=== PATIENT | male | born 1980 | race Hispanic/Latino ===

== ENCOUNTER 2021-12-08 09:02 | Emergency (ER) | payer SELFPAY ==
[2021-12-08] MEDS ORDERED: Ketorolac Tromethamine 30 MG/ML VIAL ONE (09:54)
== END 2021-12-08 10:04 | disposition home or self-care (01) ==
LOC: CSHERS 09:02
DX: S70.02XA Contusion of left hip, initial encounter (principal); Z87.891 Personal history of nicotine dependence; W19.XXXA Unspecified fall, initial encounter
CPT/HCPCS: 96372; J1885

== ENCOUNTER 2022-05-26 14:12 | Emergency (ER) | payer BC | END 2022-05-26 16:00 | disposition home or self-care (01) | LOC: CSHERS 14:12 | DX: M72.2 Plantar fascial fibromatosis (principal); Z87.891 Personal history of nicotine dependence ==

== ENCOUNTER 2023-02-25 12:19 | Emergency (ER) | payer BC ==
[2023-02-25] MEDS ORDERED: Ketorolac Tromethamine 30 MG/ML VIAL ONE (13:55)
== END 2023-02-25 15:45 | disposition home or self-care (01) ==
LOC: CSHERS 12:19
DX: M79.661 Pain in right lower leg (principal); I10 Essential (primary) hypertension; Z87.891 Personal history of nicotine dependence
CPT/HCPCS: 96372; J1885

== ENCOUNTER 2023-10-30 00:19 | Emergency (ER) | payer BC ==
[2023-10-30 00:58] LABS: #Basophils 0.04 10x3/uL (0.0-0.2); #Eosinphils 0.14 10x3/uL (0.0-0.5); #Monocytes 0.58 10x3/uL (0.0-1.1); #Neutrophils 3.42 10x3/uL (1.5-8.4); %Basophils 0.6 % (0.0-2.0); %Eosinophils 2.2 % (0.0-6.0); %Lymphocytes 32.6 % (18.0-47.0); %Monocytes 9.3 % (0.0-10.0); Hematocrit 45.9 % (38.8-50.0); Hemoglobin 15.9 g/dL (13.5-17.5); Mean Corpuscular HGB CONC 34.6 g/dL (32.0-36.0); Mean Corpuscular Hemoglobin 31.5 pg (27.0-33.0); Mean Corpuscular Volume 90.9 fL (81.2-95.1); Mean Platelet Volume 11.1 fL (7.4-10.4); Platelet Count 216 10x3/uL (150-450); RBC Distribution Width 13.1 % (11.5-14.5); Red Blood Cell (RBC) Count 5.05 10x6/uL (4.32-5.72); White Blood Cell (WBC) Count 6.2 10x3/uL (3.5-10.5)
[2023-10-30 01:06] LABS: PTT 27.1 sec (22.0-33.0); Prothrombin Time 10.7 sec (9.5-12.1)
[2023-10-30 01:11] LABS: ALT (SGPT) 36 U/L (8-55); Albumin 3.5 g/dL (3.5-5.0); Alkaline Phosphatase 68 U/L (40-110); Anion Gap 15 mmol/L (10-20); BUN (Urea Nitrogen) 22 mg/dL (8.9-20.6); Bilirubin, Total 0.3 mg/dL (0.2-1.2); Calc. Creatinine Clearance 0 mL/min (70-130); Calcium 8.3 mg/dL (7.8-10.44); Carbon Dioxide 21 mmol/L (22-29); Chloride 107 mmol/L (98-107); Estimated GFR 101; Globulin 3.3 g/dL (2.4-3.5); Glucose 101 mg/dL (70-105); Lipase 48 U/L (8-78); Protein, Total 6.8 g/dL (6.0-8.3); Sodium 139 mmol/L (136-145)
[2023-10-30 01:15] LABS: AST (SGOT) 33 U/L (5-34); Magnesium 1.9 mg/dL (1.6-2.6)
[2023-10-30 01:17] LABS: Troponin I Less than 0.010 ng/mL (< 0.028)
== END 2023-10-30 02:13 | disposition home or self-care (01) ==
LOC: CSHERS 00:19
DX: R00.8 Other abnormalities of heart beat (principal); R00.2 Palpitations; I10 Essential (primary) hypertension; Z55.6 Problems related to health literacy; Z87.891 Personal history of nicotine dependence
CPT/HCPCS: 71045; 80053; 83690; 83735; 83880; 84443; 84484; 85025; 85610; 85730; 93005

== ENCOUNTER 2025-04-10 02:48 | Emergency (ER) | payer BC ==
[2025-04-10 03:12] LABS: #Basophils 0.03 10x3/uL (0.0-0.2); #Eosinophils 0.06 10x3/uL (0.0-0.5); #Monocytes 0.81 10x3/uL (0.0-1.1); #Neutrophils 11.54 10x3/uL (1.5-8.4); %Basophils 0.2 % (0.0-2.0); %Eosinophils 0.4 % (0.0-6.0); %Lymphocytes 7.1 % (18.0-47.0); %Monocytes 6.0 % (0.0-10.0); %Neutrophils 85.9 % (40.0-75.0); Hematocrit 48.5 % (38.8-50.0); Hemoglobin 16.7 g/dL (13.5-17.5); Mean Corpuscular Hemoglobin 30.5 pg (27.0-33.0); Mean Corpuscular Volume 88.7 fL (81.2-95.1); Platelet Count 271 10x3/uL (150-450); Red Blood Cell (RBC) Count 5.47 10x6/uL (4.32-5.72); White Blood Cell (WBC) Count 13.45 10x3/uL (3.5-10.5)
[2025-04-10] MEDS ORDERED: Famotidine/PF 20 mg/2ml Vial ONE (03:15)
[2025-04-10 03:27] LABS: ALT (SGPT) 23 U/L (Less than 45); AST (SGOT) 20 U/L (11-34); Albumin 3.9 g/dL (3.1-4.5); Alkaline Phosphatase 69 U/L (40-110); Anion Gap 13 mmol/L (10-20); BUN (Urea Nitrogen) 27 mg/dL (8.9-20.6); Bilirubin, Total 0.6 mg/dL (0.3-1.2); Calc. Creatinine Clearance 0 mL/min (70-130); Calcium 8.8 mg/dL (7.8-10.44); Carbon Dioxide 22 mmol/L (22-29); Chloride 105 mmol/L (98-107); Globulin 3.2 g/dL (2.4-3.5); Glucose 127 mg/dL (70-105); Magnesium 1.9 mg/dL (1.6-2.6); Potassium 4.3 mmol/L (3.5-5.1); Sodium 136 mmol/L (136-145)
[2025-04-10 03:33] LABS: Troponin I Less than 0.010 ng/mL (< 0.028)
== END 2025-04-10 04:22 | disposition home or self-care (01) ==
LOC: CSHERS 02:48
DX: L50.0 Allergic urticaria (principal); I10 Essential (primary) hypertension; I48.91 Unspecified atrial fibrillation; Z87.891 Personal history of nicotine dependence; Z79.899 Other long term (current) drug therapy
CPT/HCPCS: 71045; 80053; 83605; 83735; 84484; 85025; 93005; 96372; 96374; 96375; J0169; J1308; J2919